=== PATIENT | female | born 1975 | race Caucasian/White ===

== ENCOUNTER 2023-07-16 14:14 | Emergency (ER) | payer OTHER, BC ==
[2023-07-16] MEDS: Ondansetron 4 MG Tab.DIS PO ONE (15:15)
[2023-07-16] MEDS: Ibuprofen 800 MG Tab PO STA (15:33)
[2023-07-16] MEDS: Acetaminophen 500 MG Tab PO STA (15:33)
== END 2023-07-16 17:00 | disposition home or self-care (01) ==
LOC: MW.ED 14:14
DX: M54.2 Cervicalgia (principal); I10 Essential (primary) hypertension; Z75.8 Other problems related to medical facilities and other health care; Z88.5 Allergy status to narcotic agent; Z79.899 Other long term (current) drug therapy
CPT/HCPCS: 70450; 72125; 99283; A9270

== ENCOUNTER 2023-09-22 14:02 | Emergency (ER) | payer BC, OTHER ==
[2023-09-22] MEDS: Sodium Chloride 0.9% 1,000 ML IV STA (15:16)
[2023-09-22] MEDS: Ketorolac 30 MG/ML SDV IVPUSH STA (15:16)
[2023-09-22] MEDS: Ondansetron 4 MG/2 ML SDV IVPUSH STA (15:16)
[2023-09-22 15:23] LABS: BASOPHILS ABSOLUTE AUTO 0.05 K/uL (0.00-0.20); BASOPHILS PERCENT AUTO 0.6 % (0.0-1.0); EOSINOPHILS ABSOLUTE AUTO 0.01 K/uL (0.00-0.45); EOSINOPHILS PERCENT AUTO 0.1 % (0.0-6.0); HEMATOCRIT 39.7 % (37.0-47.0); HEMOGLOBIN 13.4 g/dL (12.0-16.0); IMMATURE GRAN ABSOLUTE AUTO 0.04 K/uL (0.00-0.05); IMMATURE GRAN PERCENT AUTO 0.5 % (0.0-0.4); LYMPHOCYTES ABSOLUTE AUTO 1.73 K/uL (1.00-4.80); LYMPHOCYTES PERCENT AUTO 21.8 % (24.0-44.0); MEAN CORPUSCULAR HEMOGLOBIN 31.8 pg (28.0-32.0); MEAN CORPUSCULAR HGB CONC 33.8 g/dL (32.0-36.0); MEAN CORPUSCULAR VOLUME 94.3 fL (83.0-99.0); MEAN PLATELET VOLUME 8.7 fL (9.4-12.3); MONOCYTES ABSOLUTE AUTO 0.76 K/uL (0.00-0.80); MONOCYTES PERCENT AUTO 9.6 % (0.0-8.0); NEUTROPHILS ABSOLUTE AUTO 5.33 K/uL (1.80-7.70); NEUTROPHILS PERCENT AUTO 67.4 % (41.0-71.0); PLATELET COUNT,PLT 242 K/uL (150-400); RED BLOOD CELL COUNT 4.21 M/uL (4.10-5.30); WHITE BLOOD CELL COUNT,WBC 7.92 K/uL (3.9-11.3)
[2023-09-22 15:28] LABS: APPEARANCE,URINE CLEAR; BILIRUBIN,URINE NEGATIVE (NEGATIVE); COLOR,URINE YELLOW; GLUCOSE,URINE NEGATIVE (NEGATIVE); KETONES,URINE 15 mg/dL (NEGATIVE); LEUKOCYTE ESTERASE,URINE NEGATIVE (NEGATIVE); NITRITE,URINE NEGATIVE (NEGATIVE); OCCULT BLOOD,URINE NEGATIVE (NEGATIVE); PROTEIN,URINE NEGATIVE (NEGATIVE); UROBILINOGEN,URINE 0.2 EU/dL (<2.0)
[2023-09-22 15:43] LABS: A/G RATIO 0.9 (0.9-1.6); ALBUMIN 3.6 g/dL (3.4-5.0); BILIRUBIN TOTAL 0.6 mg/dL (0.2-1.0); CALCIUM 9.1 mg/dL (8.5-10.1); CREATININE 0.7 mg/dL (0.6-1.0); EST CRCL DRUG DOSING (CG) 85.79 mL/min; MAGNESIUM 1.5 mg/dL (1.8-2.4); PROTEIN TOTAL,TP 7.7 g/dL (6.4-8.2)
[2023-09-22] MEDS: Morphine 4 MG/ML Syringe IVPUSH STA (16:57)
[2023-09-22] MEDS: Iopamidol 755 MG/ML 500 ML Multipack Bottle IVPUSH STA (16:57)
== END 2023-09-22 18:15 | disposition home or self-care (01) ==
LOC: MW.ED 14:02
DX: K57.32 Diverticulitis of large intestine without perforation or abscess without bleeding (principal); I10 Essential (primary) hypertension; Z75.8 Other problems related to medical facilities and other health care; Z88.5 Allergy status to narcotic agent; Z79.899 Other long term (current) drug therapy
CPT/HCPCS: 36415; 74177; 74177-26; 80053; 81003; 83690; 83735; 84703; 85025; 96361; 96374; 96375; 99284; 99284-25; J1885; J2270; J2405; J7030; Q9967

== ENCOUNTER 2023-11-10 11:02 | Day surgery (SDC) | payer BC ==
[~2023-11-10 11:02] MED LIST: Sodium Chloride 0.9% 10 ML Syringe FLUSH PRN; Sodium Chloride 0.9% 2.5 ML Syringe FLUSH PRN; Sodium Chloride 0.9% 20 ML SDV IV PRN
[2023-11-10] MEDS: Lactated Ringers 1,000 ML IV SCH (11:55)
[2023-11-10] MEDS ORDERED: dexmedeTOMIDine HCl 200 MCG/2 ML SDV ONE (12:27)
[2023-11-10] MEDS ORDERED: propofoL 50 ML ONE (13:44)
== END 2023-11-10 14:30 | disposition home or self-care (01) ==
LOC: MW.SDS 11:02
PROVIDERS: ATTEND Surgery
DX: K29.50 Unspecified chronic gastritis without bleeding (principal); K57.32 Diverticulitis of large intestine without perforation or abscess without bleeding; I10 Essential (primary) hypertension; E78.00 Pure hypercholesterolemia, unspecified; Z79.899 Other long term (current) drug therapy; Z88.5 Allergy status to narcotic agent
CPT/HCPCS: 43239; 45380; J2704; J7120; J3490